=== PATIENT | male | born 1995 | race Hispanic/Latino ===

== ENCOUNTER 2018-06-16 16:34 | Emergency (ER) | payer SELFPAY ==
[2018-06-16] MEDS ORDERED: Fluorescein Opthalmic Strip ONE (16:57)
[2018-06-16] MEDS ORDERED: Proparacaine 0.5% Opth 15 ML BOT ONE (16:57)
== END 2018-06-16 17:27 | disposition home or self-care (01) ==
LOC: ERS 16:34
DX: S05.02XA Injury of conjunctiva and corneal abrasion without foreign body, left eye, initial encounter (principal); X58.XXXA Exposure to other specified factors, initial encounter
CPT/HCPCS: 99283

== ENCOUNTER 2018-07-28 20:55 | Emergency (ER) | payer SELFPAY | END 2018-07-28 21:16 | disposition home or self-care (01) | LOC: ERS 20:55 | DX: L03.113 Cellulitis of right upper limb (principal) | CPT/HCPCS: 99281 ==

== ENCOUNTER 2018-08-31 23:56 | Emergency (ER) | payer SELFPAY ==
[2018-09-01] MEDS ORDERED: CEFAZOLIN 1 GM VIAL ONE (00:36)
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
== END 2018-09-01 00:59 | disposition home or self-care (01) ==
LOC: ERS 23:56
DX: S62.522B Displaced fracture of distal phalanx of left thumb, initial encounter for open fracture (principal); J45.909 Unspecified asthma, uncomplicated; W29.4XXA Contact with nail gun, initial encounter
CPT/HCPCS: 96372; J0690

== ENCOUNTER 2024-04-13 22:59 | Emergency (ER) | payer SELFPAY ==
[2024-04-13] MEDS ORDERED: Boostrix 0.5 ML (Tdap) VIAL (>/=7 yrs of age) ONE (23:55)
[2024-04-13] MEDS ORDERED: HYDROcodone/Acetaminophen 5/325 mg Tablet ONE (23:55)
== END 2024-04-14 01:01 | disposition home or self-care (01) ==
LOC: ERS 22:59
DX: S67.190A Crushing injury of right index finger, initial encounter (principal); S62.630A Displaced fracture of distal phalanx of right index finger, initial encounter for closed fracture; S61.310A Laceration without foreign body of right index finger with damage to nail, initial encounter; W23.0XXA Caught, crushed, jammed, or pinched between moving objects, initial encounter; Z23 Encounter for immunization
CPT/HCPCS: 90715

== ENCOUNTER 2024-11-05 23:55 | Observation (INO) | payer SELFPAY ==
[2024-11-06 00:44] LABS: #Basophils 0.05 10x3/uL (0.0-0.2); #Eosinophils 0.18 10x3/uL (0.0-0.7); #Monocytes 1.11 10x3/uL (0.11-0.59); #Neutrophils 10.46 10x3/uL (1.40-6.50); %Basophils 0.4 % (0.0-1.0); %Eosinophils 1.3 % (0.0-10.0); %Lymphocytes 12.3 % (21.0-51.0); %Monocytes 8.2 % (0.0-10.0); %Neutrophils 77.3 % (42.0-75.0); Hematocrit 44.7 % (42.0-52.0); Hemoglobin 15.4 g/dL (14.0-18.0); Mean Corpuscular Hemoglobin 31.9 pg (27.0-31.0); Mean Corpuscular Volume 92.5 fL (78.0-98.0); Platelet Count 235 10x3/uL (130-400); Red Blood Cell (RBC) Count 4.83 mill/uL (4.70-6.10); White Blood Cell (WBC) Count 13.54 10x3/uL (4.8-10.8)
[2024-11-06 01:08] LABS: ALT (SGPT) 40 U/L (Less than 45); AST (SGOT) 21 U/L (11-34); Albumin 4.5 g/dL (3.1-4.5); Alkaline Phosphatase 126 U/L (40-110); Anion Gap 14 mmol/L (10-20); BUN (Urea Nitrogen) 16 mg/dL (8.9-20.6); Bilirubin, Total 0.4 mg/dL (0.3-1.2); Calc. Creatinine Clearance 0 mL/min (70-130); Calcium 9.2 mg/dL (7.8-10.44); Carbon Dioxide 25 mmol/L (22-29); Chloride 103 mmol/L (98-107); Globulin 3.6 g/dL (2.4-3.5); Glucose 101 mg/dL (70-105); Lipase 15 U/L (8-78); Potassium 4.0 mmol/L (3.5-5.1); Sodium 138 mmol/L (136-145)
[2024-11-06 02:27] LABS: Bacteria/HPF None Seen HPF (None Seen); CAUTI Indications for Culture Dysuria,urgency,freq; Glucose, Urine (Dipstick) Normal (Negative); Leukocyte Negative Leu/uL (Negative); Protein, Urine (Dipstick) Negative (Neg-Trace); RBC/HPF 0-3 HPF (0-3); Specific Gravity, Urine 1.033 (1.002-1.036); Urine Culture Reflex No No; WBC/HPF 0-3 HPF (0-3)
[2024-11-06] MEDS ORDERED: Ondansetron PF 4 MG/2 ML Vial ONE (02:34)
[2024-11-06] MEDS ORDERED: Famotidine/PF 20 mg/2ml Vial ONE (02:35)
[2024-11-06] MEDS ORDERED: Glucagon 1 MG/ML KIT IM PRN (04:27)
[2024-11-06] MEDS ORDERED: Ondansetron PF 4 MG/2 ML Vial IVP PRN (04:27)
[2024-11-06] MEDS ORDERED: Acetaminophen 325 MG TAB PO PRN (04:27)
[2024-11-06] MEDS ORDERED: Dextrose 50% Abboject 50 ML SYRINGE SLOW IVP PRN (04:27)
[2024-11-08] MEDS ORDERED: TETANUS, DIPHTHERIA TOX,ADULT (TDVAX) 0.5 ML VIAL IM ONE (09:00)
== END 2024-11-06 05:34 | disposition left against medical advice (07) ==
LOC: ERS 23:55 → ERHOLD 11-06 04:32
PROVIDERS: ADMIT Colon & Rectal Surgery; ATTEND Colon & Rectal Surgery
DX: K80.00 Calculus of gallbladder with acute cholecystitis without obstruction (principal); F17.290 Nicotine dependence, other tobacco product, uncomplicated
CPT/HCPCS: 36415; 76705; 80053; 81001; 83605; 83690; 85025; 96374; 96375; G0378; J1308; J2405; J2543